=== PATIENT | male | born 1940 | race Two or more races ===

== ENCOUNTER 2017-03-02 19:04 | Emergency (ER) | payer MEDICARE ==
[~2017-03-02] VITALS: Ht 172.7 cm; Wt 77.1 kg
--- NOTE | 2017-03-02 19:11 | Emergency Room Report ---
History of Present Illness General Chief Complaint: Syncope Source: Patient, Family Member, EMS Present Illness HPI This presents a syncopal episode. According to his he's had this problem before. He's been admitted and observed. They can't determine the cause of the syncope. Apparently his blood pressure runs low and when he stands up and sometimes it drops. He denies any chest pain, palpitations, headache, fevers, nausea, vomiting, diarrhea, dysuria or joint pain. There was initially no trauma alleged when he passed out today. He denies drugs or alcohol. He had just urinated. He stood and fell. Later they admitted there was some injury/scrapes to upper back on the right shoulder area. He and his deny any other medical problems however after speaking with Valentin is paroxysmal atrial fibrillation on Coumadin and diabetes on medication . Denies melena or blood in stool. No hematuria. No fevers, cough, sore throat, headache, rashes (aside from abrasion), joint pain. Allergies: Coded Allergies: No Known Allergies (Unverified , 03/02/17) Patient History Past Medical History: see triage record Social History: Denies: alcohol use, drug use Social History Narrative - from [facility] Reviewed Nursing Documentation: PMH: Agreed, PSxH: Agreed Nursing Documentation-PMH Hx Cardiac Problems: Yes - AFIB Hx Diabetes: Yes Review of Systems All Other Systems: negative except mentioned in HPI Physical Exam Vital Signs Date Time Temp Pulse Resp B/P (MAP) Pulse Ox O2 Delivery O2 Flow Rate FiO2 03/02/17 19:01 100 20 96/34 99 Room Air Sp02 EP Interpretation: reviewed, normal General Appearance: well appearing, no apparent distress, GCS 15 Head: normocephalic, atraumatic Eyes: bilateral eye abnormal pupil - pinpoint ENT: moist mucus membranes - non lingual trauma Neck: supple, no bony tend Respiratory: chest non-tender, lungs clear, normal breath sounds Cardiovascular #1: regular rate, rhythm Cardiovascular #2: 2+ radial (R) Gastrointestinal: normal inspection, normal bowel sounds, non tender, no mass, non-distended Genitourinary: no CVA tenderness Musculoskeletal: back normal, gait/station normal, normal range of motion Neurologic: alert, oriented x3, range mounter III-XII nml as tested, motor strength/tone normal, DTRs symmetric, sensory intact, cerebellar normal, speech normal Psychiatric: mood/affect normal Skin: warm/dry, abrasions - R scapular area, no hematoma Medical Decision Making Diagnostic Impression: Primary Impression: Syncope Qualified Codes: R55 - Syncope and collapse Additional Impressions: Shoulder contusion Qualified Codes: S40.011A - Contusion of right shoulder, initial encounter Anticoagulated on Coumadin h/o paroxysmal atrial fibrilaton Anemia Qualified Codes: D64.9 - Anemia, unspecified ER Course The patient presents with syncope. His history in the past of syncope and low blood pressure. His blood pressure was low in the field. He feels better when supine. He denies taking any medication. His states that his blood pressure drops. Evaluation of the EKG, chest x-ray and labs. Orthostatic vital signs will be obtained. Patient will receive some IV hydration at this time. There are pinpoint pupils drug screen will be obtained. The patient's orthostatic and IV hydration was begun. CT is not indicated at this time because patient is a nonfocal neurologic exam. After discussion with Valentin, Dr. Houston, he states on coumadin and requests CT of head. EKG NSR 1st degree AV block. Labs with anticoagulation. Troponin negative. H/ H slightly low. CT of head with atrophy without bleed. Calling Dr. Houston. Patient transferred to [place] for telemetry observation. Laboratory Tests Test 03/02/17 19:25 03/02/17 21:50 White Blood Count 6.1 K/UL (4.8-10.8) Red Blood Count 3.29 M/UL (4.70-6.10) L Hemoglobin 9.6 G/DL (14.2-18.0) L Hematocrit 31.5 % (42.0-52.0) L Mean Corpuscular Volume 96 FL (80-99) Mean Corpuscular Hemoglobin 29.1 PG (27.0-31.0) Mean Corpuscular Hemoglobin Concent 30.5 G/DL (32.0-36.0) L Red Cell Distribution Width 14.2 % (11.6-14.8) Platelet Count 105 K/UL (150-450) L Mean Platelet Volume 7.0 FL (6.5-10.1) Neutrophils (%) (Auto) 91.4 % (45.0-75.0) H Lymphocytes (%) (Auto) 3.3 % (20.0-45.0) L Monocytes (%) (Auto) 4.4 % (1.0-10.0) Eosinophils (%) (Auto) 0.5 % (0.0-3.0) Basophils (%) (Auto) 0.4 % (0.0-2.0) Prothrombin Time 24.7 SEC (9.30-11.50) H Prothrombin Time INR 2.3 (0.9-1.1) H PTT 35 SEC (23-33) H Sodium Level 136 MMOL/L (136-145) Potassium Level 4.1 MMOL/L (3.5-5.1) Chloride Level 103 MMOL/L (98-107) Carbon Dioxide Level 24 MMOL/L (21-32) Anion Gap 9 mmol/L (5-15) Blood Urea Nitrogen 30 mg/dL (7-18) H Creatinine 1.3 MG/DL (0.55-1.30) Estimate Glomerular Filtration Rate mL/min (>60) Glucose Level 295 MG/DL (74-106) H Calcium Level 7.8 MG/DL (8.5-10.1) L Total Bilirubin 0.4 MG/DL (0.2-1.0) Aspartate Amino Transferase (AST) 16 U/L (15-37) Alanine Aminotransferase (ALT) 12 U/L (12-78) Alkaline Phosphatase 35 U/L (46-116) L Total Creatine Kinase 32 U/L (26-308) Troponin I 0.000 ng/mL (0.000-0.056) Pro-B-Type Natriuretic Peptide 238 pg/mL (0-125) H Total Protein 7.1 G/DL (6.4-8.2) Albumin 3.3 G/DL (3.4-5.0) L Globulin 3.8 g/dL Albumin/Globulin Ratio 0.9 (1.0-2.7) L Urine Opiates Screen Negative (NEGATIVE) Urine Barbiturates Screen Negative (NEGATIVE) Phencyclidine (PCP) Screen Negative (NEGATIVE) Urine Amphetamines Screen Negative (NEGATIVE) Urine Benzodiazepines Screen Negative (NEGATIVE) Urine Cocaine Screen Negative (NEGATIVE) Urine Marijuana (THC) Screen Negative (NEGATIVE) EKG Diagnostic Results Rate: normal Rhythm: NSR ST Segments: no acute changes Rhythm Strip Diag. Results EP Interpretation: yes Rhythm: NSR, no PVC's, no ectopy Chest X-Ray Diagnostic Results Chest X-Ray Diagnostic Results : Chest X-Ray Ordered: Yes # of Views/Limited/Complete: 1 View Indication: Other EP Interpretation: Yes Interpretation: no consolidation, no effusion, no pneumothorax, no acute cardiopulmonary disease Impression: No acute disease Electronically Signed by: Wilmer Serrano MD CT/MRI/US Diagnostic Results CT/MRI/US Diagnostic Results : Imaging Test Ordered: head Impression ? old lacunes/atrophy Status: improved [facility] Condition: Serious - stale for transfer Wilmer Serrano M.D. Mar 02, 2017 19:11
[2017-03-02 19:15] VITALS: BP_SYST 107; BP_SYST 134; BP_SYST 94; BP_DIAS 46; BP_DIAS 48; BP_DIAS 56
[2017-03-02 19:55] LABS: HEMATOCRIT 31.5 % (42.0-52.0); HEMOGLOBIN 9.6 G/DL (14.2-18.0); MEAN CORPUSCULAR VOLUME 96 FL (80-99); PLATELET COUNT 105 K/UL (150-450); RED BLOOD COUNT 3.29 M/UL (4.70-6.10); RED CELL DISTRIBUTION WIDTH 14.2 % (11.6-14.8); WHITE BLOOD COUNT 6.1 K/UL (4.8-10.8)
[2017-03-02 19:56] LABS: LYMPHOCYTES % (AUTO) 3.3 % (20.0-45.0); MONOCYTES % (AUTO) 4.4 % (1.0-10.0); NEUTROPHILS % (AUTO) 91.4 % (45.0-75.0)
[2017-03-02 19:57] LABS: BASOPHILS % (AUTO) 0.4 % (0.0-2.0); EOSINOPHILS % (AUTO) 0.5 % (0.0-3.0)
[2017-03-02 20:03] LABS: INR 2.3 (0.9-1.1)
[2017-03-02 20:10] LABS: ANION GAP 9 mmol/L (5-15); BLOOD UREA NITROGEN 30 mg/dL (7-18); CALCIUM 7.8 MG/DL (8.5-10.1); CARBON DIOXIDE 24 MMOL/L (21-32); CHLORIDE 103 MMOL/L (98-107); CREATININE 1.3 MG/DL (0.55-1.30); POTASSIUM 4.1 MMOL/L (3.5-5.1); SODIUM 136 MMOL/L (136-145)
[2017-03-02 20:24] LABS: ALANINE AMINOTRANSFERASE 12 U/L (12-78); ALBUMIN 3.3 G/DL (3.4-5.0); ALBUMIN/GLOBULIN RATIO 0.9 (1.0-2.7); ALKALINE PHOSPHATASE 35 U/L (46-116); ASPARTATE AMINO TRANSFERASE 16 U/L (15-37); BILIRUBIN,TOTAL 0.4 MG/DL (0.2-1.0); CREATINE KINASE 32 U/L (26-308)
[2017-03-02 21:00] VITALS: BP 127/63
[2017-03-02] MEDS ORDERED: Bacitracin Oint UD TOPIC ONE (22:00)
[2017-03-02 22:57] VITALS: BP 128/56
[2017-03-03 00:50] VITALS: BP 118/49
[2017-03-03 01:01] VITALS: BP 118/49
--- NOTE | 2017-03-04 23:59 | Cardiology Report ---
APPROVED REPORT EKG Measurement Heart [id number] Sinus rhythm with 1st degree AV block Otherwise normal ECG
--- NOTE | 2017-03-05 14:02 | Diagnostic Imaging Report ---
Indication: Syncope Technique: Continuous helical CT scanning of the head was performed utilizing automated exposure control without intravenous contrast material. Axial and coronal reconstructions were obtained. Comparison: None CT dose: Total DLP 1495 mGycm; CTDI vol 70.4 mGy Findings: There is no acute intracranial hemorrhage, mass effect or cortical edema. The ventricles, cisterns and sulci are prominent consistent with atrophy. Mild periventricular hypoattenuation is seen, a nonspecific finding. There is a small hypodensity of the left benjamin. The posterior fossa and fourth ventricle are unremarkable. Sellar and suprasellar regions are grossly unremarkable. Visualized mastoid air cells and paranasal sinuses are unremarkable. No focal lesions of the bony calvarium or soft tissues of the scalp are seen. Impression: No evidence of acute intracranial hemorrhage, mass effect or cortical edema. MRI may be obtained for more sensitive evaluation as clinically indicated. Atrophy and mild nonspecific periventricular hypoattenuation suggestive of chronic ischemic microvascular changes. Questionable hypodensity in the left benjamin may be artifactual or an acute indeterminate lacunar infarct. Further evaluation recommended as indicated. The CT scanner at [facility] is accredited by the [employer] and the scans are performed using protocols designed to limit radiation exposure to as low as reasonably achievable to attain images of sufficient resolution adequate for diagnostic evaluation.
--- NOTE | 2017-03-05 14:02 | Diagnostic Imaging Report ---
Indication: Shortness of breath Technique: XRAY Chest 1v Comparison: None Findings: Cardiac silhouette is prominent. There is mild central pulmonary vascular congestion and lung base atelectasis. Degenerative changes of the spine are noted. Impression: Mild central pulmonary vascular congestion and lung base atelectasis. Clinical correlation/follow-up recommended.
== END 2017-03-03 01:01 | disposition short-term general hospital (02) ==
LOC: EDBD 19:04 → EMR 20:35
DX: R51 Headache (principal); S40.011A Contusion of right shoulder, initial encounter; Z79.01 Long term (current) use of anticoagulants; D64.9 Anemia, unspecified; E11.9 Type 2 diabetes mellitus without complications; R03.1 Nonspecific low blood-pressure reading; I44.0 Atrioventricular block, first degree
CPT/HCPCS: 36415; 70450; 71045; 80053; 80307; 82550; 82962; 83880; 84484; 85025; 85610; 85730; 93005; 96361; 96374; 99284